=== PATIENT | female | born 1940 | race Caucasian/White ===

== ENCOUNTER 2019-03-05 07:49 | Inpatient (IN) ==
--- NOTE | 2019-02-21 15:40 | PAT Medication Instructions ---
Medication Instructions Date of Service February 21, 2019 Home Medications aspirin [Aspir-81] 81 mg PO QAM atorvastatin [Lipitor] 10 mg PO HS carbidopa-levodopa 2 tab PO HS celecoxib [Celebrex] 200 mg PO QAM cholecalciferol (vitamin D3) [Vitamin D3] 1,000 unit PO QAM docusate sodium [Stool Softener] 100 mg PO QAM glimepiride 2 mg PO QAM levothyroxine 100 mcg PO QAM lisinopril 10 mg PO QPM meclizine 25 mg PO BID PRN niacin 500 mg PO QAM pantoprazole 40 mg PO QPM ASK your surgeon for instructions celecoxib [Celebrex] 200 mg PO QAM ASK your prescriber and surgeon aspirin [Aspir-81] 81 mg PO QAM STOP taking 48 hours before surgery niacin 500 mg PO QAM DO NOT take the morning of surgery cholecalciferol (vitamin D3) [Vitamin D3] 1,000 unit PO QAM docusate sodium [Stool Softener] 100 mg PO QAM glimepiride 2 mg PO QAM Take morning of surgery With a small sip of water, OTHERWISE NOTHING TO EAT OR DRINK AFTER MIDNIGHT: levothyroxine 100 mcg PO QAM meclizine 25 mg PO BID PRN (if needed) Take evening before surgery atorvastatin [Lipitor] 10 mg PO HS carbidopa-levodopa 2 tab PO HS lisinopril 10 mg PO QPM meclizine 25 mg PO BID PRN (if needed) pantoprazole 40 mg PO QPM Other Notes If you have any questions please call us at [phone] or [phone] or [phone] or [phone]
--- NOTE | 2019-02-24 09:11 | Anesthesiology Consultation ---
Date of Service February 24, 2019 Assessment & Plan (1) Encounter for pre-operative examination: - Check BSG AM DOS Chart Review Chart Review: Pending: Refer to Additional Notes / Consult section (pending preop labs) and Patient seen in Pre Admission Testing Teaching & Discussion Pre-Anesthesia Teaching/Discussion Notes: Instructed NPO after midnight before surgery,except medications with 15 cc of water. Medication instructions provided according to the PAT guidelines. History Surgery Operation Date: 03/05/19 07:45 Proposed Procedures p L1-S1 Re-Decompression, T12-S1 Fusion with Possible Iliac Fixation with Spinal Cord Monitoring - Julien Baldwin DO Height/Weight Height: 5 ft 3 in Weight: 76.1 kg Allergies Allergy/AdvReac Type Severity Reaction Status Date / Time No Known Allergies Allergy Verified 02/20/19 08:23 Medications Home Medications Medication Instructions Recorded Confirmed Last Taken aspirin [Aspir-81] 81 mg PO QAM 02/20/19 02/20/19 Unknown atorvastatin [Lipitor] 10 mg PO HS 02/20/19 02/20/19 Unknown carbidopa-levodopa 2 tab PO HS 02/20/19 02/20/19 Unknown celecoxib [Celebrex] 200 mg PO QAM 02/20/19 02/20/19 Unknown cholecalciferol (vitamin D3) 1,000 unit PO QAM 02/20/19 02/20/19 Unknown [Vitamin D3] docusate sodium [Stool Softener] 100 mg PO QAM 02/20/19 02/20/19 Unknown glimepiride 2 mg PO QAM 02/20/19 02/20/19 Unknown levothyroxine 100 mcg PO QAM 02/20/19 02/20/19 Unknown lisinopril 10 mg PO QPM 02/20/19 02/20/19 Unknown meclizine 25 mg PO BID PRN 02/20/19 02/20/19 Unknown niacin 500 mg PO QAM 02/20/19 02/20/19 Unknown pantoprazole 40 mg PO QPM 02/20/19 02/20/19 Unknown Past Medical History Medical History Arthritis Chronic back pain B/L LE Diabetes mellitus, type 2 NIDDM GERD (gastroesophageal reflux disease) controlled Hyperlipidemia Hypertension Hypothyroidism Restless leg syndrome on carbidopa-levodopa Exercise / Class Metabolic Activity III < 4 Walking/Shop/Light housework Past Family History Family History Sister Family history of reaction to anesthesia SLOW TO WAKE UP Mother Family history of diabetes mellitus Past Surgical History Surgical History Fusion of spine lumbar (20+ years ago) Fusion of spine cervical (20+ years ago) H/O hemorrhoidectomy History of carpal tunnel release R/L Past Anesthesia History No Hx of Anesthesia Complications and Other Sister- slow to wake; no known hx reintubation History of PONV No Hx of PONV and Hx of Motion Sickness (occasional) Social History Smoking Status: Never smoker Do You Dip or Chew Tobacco: No Hx Alcohol Use: No Hx Substance Use: No Review of Systems Reflux controlled. Patient denies chest pain, shortness of breath, cough, wheezing, palpitations. Physical Exam Vital Signs VITALS BP 145/79 P 79 TEMP 98.1 SP02 95%RA RESP 18 PHYSICAL Full neck and c-spine range of motion. Full TMJ range of motion. TMD 3 finger breaths Mallampati Score 2 Dentition: intact Lungs: clear throughout to auscultation Cardiac: regular rate and rhythm with occasional extra beat, no murmurs noted Spine: normal Carotid arteries: negative bruit Extremities: no edema Short neck Testing Electrocardiogram Date: 12/27/18 SR at 68bpm. Consider LVH. Chest X-Ray Date: 12/27/18 Findings: + NAD
[2019-02-24 09:41] LABS: Basophils # (auto) 0.02 K/uL (0-0.2); Basophils % (auto) 0.3 %; Eosinophils # (auto) 0.31 K/uL (0-0.5); Eosinophils % (auto) 4.1 %; Hematocrit (blood only) 37.8 % (37-47); Hemoglobin 12.9 g/dL (12.0-16.0); Immature Granulocytes # (auto) 0.03 K/uL (0.00-0.02); Immature Granulocytes % (auto) 0.4 %; Lymphocytes # (auto) 1.52 K/uL (1.2-3.4); Lymphocytes % (auto) 20.1 %; Mean Corpuscular Hemoglobin 32.2 pg (25-34); Mean Corpuscular Hgb Conc 34.1 g/dL (32-36); Mean Corpuscular Volume 94.3 fL (80-100); Mean Platelet Volume 10.5 fL (7.4-10.4); Monocytes # (auto) 0.67 K/uL (0.11-0.59); Monocytes % (auto) 8.9 %; Neutrophils % (auto) 66.2 %; Platelet Count 209 K/uL (130-400); RDW Coefficient of Variation 13.7 % (11.5-14.5); Red Blood Count 4.01 M/uL (4.2-5.4); White Blood Count 7.55 K/uL (4.8-10.8)
[2019-02-24 09:58] LABS: INR 1.1 (0.9-1.1); Partial Thromboplastin Time 27.1 Seconds (21.0-31.0); Prothrombin Time 11.3 Seconds (9.0-12.0)
[2019-02-24 10:56] LABS: Estimated Average Glucose 166 mg/dl; Hemoglobin A1C 7.4 % (4.5-5.6)
[2019-02-24 11:11] LABS: BUN Creatinine Ratio 19.6 (10-20); Calcium 9.5 mg/dl (8.5-10.1); Est GFR (Non-African American) 43.1; Potassium 4.5 mmol/L (3.5-5.1)
[2019-02-24 12:39] LABS: Appearance Urine Clear (Clear); Bacteria Urine Automated Negative (Negative); Bilirubin Urine Negative (Negative); Blood Urine Negative (Negative); Color Urine Yellow; Epithelial Cell Urine Auto >30 /lpf (0-5); Glucose Urine UA 3+ (Negative); Ketones Urine Negative (Negative); Leukocyte Esterase Urine 2+ (Negative); Nitrite Urine Negative (Negative); Protein Urine Negative (Negative); Specific Gravity Urine 1.017 (1.000-1.030); Urobilinogen Urine Negative (Negative); pH Urine 5.5 (4.5-7.5)
[2019-02-24 13:18] LABS: RBC Urine Automated 0-4 /hpf (0-4)
[~2019-03-05 07:49] MED LIST: ACETAMINOPHEN 500 MG TAB PO SCH; CEFAZOLIN 1000MG 1,000 MG/7.5 ML SYR IV SCH; CeleBREX 200 MG CAP PO SCH; GABAPENTIN 300 MG CAP PO SCH; SODIUM CHLORIDE 0.9% 1000ML IV SCH; VOLUVEN IN NSS IV ONE
[2019-03-05] MEDS ORDERED: ePHEDrine sulfate 50 MG/ML AMP IV PRN (08:51)
[2019-03-05] MEDS ORDERED: ATROPINE SULFATE 0.1 MG/ML 10ML SYR IV PRN (08:51)
[2019-03-05] MEDS ORDERED: ONDANSETRON INJ 2 MG/ML 2 ML VIAL IV PRN (08:51)
[2019-03-05] MEDS ORDERED: HYDROmorphone INJ 1 MG/ML SYRINGE IV PRN ×2 (08:51→15:54)
[2019-03-05] MEDS ORDERED: MIDAZOLAM HCL 1 MG/ML 2ML VIAL ONE (09:42)
[2019-03-05] MEDS ORDERED: fentaNYL citrate 100 MCG/2 ML VIAL ONE ×7 (09:42→14:28)
--- NOTE | 2019-03-05 10:04 | History & Physical Bridge Note ---
Date of Service March 05, 2019 History & Physical Bridge Note I have examined the patient, reviewed the History & Physical and in the interval since the performance of the History & Physical I have noted the following changes of clinical significance: no changes noted
--- NOTE | 2019-03-05 10:05 | History & Physical Report ---
Date of Service March 05, 2019 Assessment & Plan (1) Spinal stenosis, lumbar region with neurogenic claudication: L1-S1 decompression fusion T12-S1 with possible iliac fixation Present on Admission?: Yes History of Present Illness Chief Complaint: Back and bilateral leg pain Primary Care Provider: Renetta Daily MD This is a 79-year-old female who presents with chronic persistent back and bilateral leg pain. After failing extensive course of nonoperative care is here for surgical intervention. Allergies Allergy/AdvReac Type Severity Reaction Status Date / Time No Known Allergies Allergy Verified 03/05/19 08:04 Home Medications Home Medications Medication Instructions Recorded Confirmed Type aspirin [Aspir-81] 81 mg PO QAM 02/20/19 03/05/19 History atorvastatin [Lipitor] 10 mg PO HS 02/20/19 03/05/19 History carbidopa-levodopa 2 tab PO HS 02/20/19 03/05/19 History celecoxib [Celebrex] 200 mg PO QAM 02/20/19 03/05/19 History cholecalciferol (vitamin D3) 1,000 unit PO QAM 02/20/19 03/05/19 History [Vitamin D3] docusate sodium [Stool Softener] 100 mg PO QAM 02/20/19 03/05/19 History glimepiride 2 mg PO QAM 02/20/19 03/05/19 History levothyroxine 100 mcg PO QAM 02/20/19 03/05/19 History lisinopril 10 mg PO QPM 02/20/19 03/05/19 History meclizine 25 mg PO BID PRN 02/20/19 03/05/19 History niacin 500 mg PO QAM 02/20/19 03/05/19 History pantoprazole 40 mg PO QPM 02/20/19 03/05/19 History Past Med/Surg History Medical History Arthritis Chronic back pain B/L LE Diabetes mellitus, type 2 NIDDM GERD (gastroesophageal reflux disease) controlled Hyperlipidemia Hypertension Hypothyroidism Restless leg syndrome on carbidopa-levodopa Surgical History Fusion of spine lumbar (20+ years ago) Fusion of spine cervical (20+ years ago) H/O hemorrhoidectomy History of carpal tunnel release R/L Family History Sister Family history of reaction to anesthesia SLOW TO WAKE UP Mother Family history of diabetes mellitus Social History Preferred Language: Romansh Communication Ability: Effective University Administrative Assistant Required: No Beliefs That Will Affect Care: None Current Living Situation: Spouse Other Information That Helps Us Care for You: No Feels Safe at Home: Yes Safety Concerns: Feels Safe At This Time Smoking Status: Never smoker Do You Dip or Chew Tobacco: No ; Second Hand Exposure: No ; Hx Alcohol Use: No Hx Substance Use: No Physical Exam Physical Exam: Patient is alert and oriented neurologically intact. Results & Data Vital Signs (Past 12 Hours) Vital Signs Temp Pulse Resp BP Pulse Ox 03/05/19 08:23 36.5 C 86 18 148/86 H 98
[2019-03-05] MEDS ORDERED: BACITRACIN INJ 50,000 UNIT VIAL ONE (10:16)
[2019-03-05] MEDS ORDERED: THROMBIN FOR SOLN 20000 UNIT KIT ONE (10:16)
[2019-03-05] MEDS ORDERED: BUPIVACAINE/EPINEPHRINE 0.5% MPF 1:200,000 30 ML VIAL ONE (10:20)
[2019-03-05] MEDS ORDERED: CEFAZOLIN 250 MG/ML 1 GM VIAL ONE (10:44)
[2019-03-05] MEDS ORDERED: SODIUM CHLORIDE 0.9% INJ 10 ML VIAL ONE (11:31)
[2019-03-05] MEDS ORDERED: HYDROmorphone INJ 2 MG/ML SYR/VIAL ONE ×3 (11:31→14:08)
[2019-03-05] MEDS ORDERED: PROPOFOL IV EMULSION 10 MG/ML 20 ML VIAL IV ONE (13:33)
[2019-03-05] MEDS ORDERED: GLYCOPYRROLATE 0.2 MG/ML VIAL ONE (13:33)
[2019-03-05] MEDS ORDERED: NEOSTIGMINE METHYLSULFATE 1 MG/ML 10ML VIAL ONE (13:33)
[2019-03-05] MEDS ORDERED: ONDANSETRON INJ 2 MG/ML 2 ML VIAL ONE ×2 (13:33→14:28)
[2019-03-05] MEDS ORDERED: LIDOCAINE HCL 2% 2 ML VIAL/AMP(20MG/ML) INFIL ONE (13:33)
[2019-03-05] MEDS ORDERED: DEXAMETHASONE SOD INJ 4 MG/ML VIAL ONE (13:33)
[2019-03-05] MEDS ORDERED: ALBUMIN HUMAN 5% 12.5 GM/250 ML VIAL IV ONE (13:44)
[2019-03-05] MEDS ORDERED: FLOSEAL HEMOSTATIC MATRIX 5ML TOP ONE (13:46)
--- NOTE | 2019-03-05 14:00 | Operative Report ---
Post Operative Report Pre & Post Diagnosis Operation Date: 03/05/19 09:55 Pre-Op Diagnosis: Spinal stenosis, lumbar region with neurogenic claudication Spondylolisthesis L4-5 L5-S1. Post-Op Diagnosis: Same I identified the patient and participated in the time-out.: Yes Procedure Operation Date: 03/05/19 09:55 Actual Procedures #1 revision decompression with medial facetectomies and foraminotomies at L3-4 L4-5 L5-S1. #2 posterior spinal fusion T12-L1 L1-L2 L2-L3 L3-L4 L4-L5 L5-S1. #3 bilateral SI joint fusion. #4 placement posterior segmental instrumentation with bilateral iliac bolts L1-S1. #5 interbody fusion L4-5 L5-S1. #6 placement of peek cage 12 x 22 mm at L4-5 and 9 x 22 mm L5-S1. #7 placement infuse collagen sponge, master graft in the posterior lateral gutters and ostial amp and interbody space. #8 placement of locally harvested morselized autograft in the posterior lateral gutters. Surgeon Julien Baldwin, [employer] Supervisor Jennie Espinal Estimated Blood Loss 425 Findings Consistent with Post-Op Diagnosis Specimens None Indications This is a 79-year-old female presents with above-mentioned diagnosis after failing extensive course of nonoperative care elected to go the above-mentioned procedure. Description of Procedure Patient was met with identified and informed consent obtained. Patient was then taken to the operative suite underwent intubation placed in the prone position the Lazaro table on top of the Robby frame. All bony prominences well-padded eyes inspected to ensure no external pressure placed upon the peer at this point the lumbar spine was prepped and draped in the normal sterile fashion. Sharp dissection with the assistance of Bovie cautery was performed down to and exposing the lamina and transverse processes of T12-L1 L2-L3-L4 L5 and sacroiliac bilaterally. This included exposure of the bilateral posterior SI joints. Then performed a revision complete laminectomy with medial facetectomies and foraminotomies at L3-4 L4-5 L5-S1 on the right. Pedicle screws were then placed in L1-L2 L3-L4-L5 S1 as well as bilateral iliac bolts with the assistance of fluoroscopy. By way of a transforaminal portion right complete discectomy of L5-S1 is performed endplates curetted to subcortical bleeding bone and a 9 x 22 mm peek cage filled with ostium bone graft tapped into position. Then proceeded L for [address] of a transforaminal approach on the right complete discectomy was performed endplates curetted to subcortical bleeding bone and a 12 x 22 mm peek cage filled with ostium bone graft tapped in position. The appropriately sized rods were then contoured and locked in position bilaterally. The transverse processes of T12 L1-L2 L3-L4-L5 the sacral ala were then burred to subcortical bleeding bone and infuse collagen sponge bone mass graft locally harvested morselized graft was placed. Also in addition to this burred out the bilateral SI joints and placed additional infuse and collagen sponge in the bilateral SI joints. 15 round GRACIELA drain was inserted. Incision was then closed with 1 Vicryl in the fascia 2-0 Vicryl subtenons seen for Monocryl for final skin closure. Steri-Strip sterile dressings placed. She will continue to PACU stable condition. Please note Jennie Espinal present at the entire procedure involved the patient positioning complex portions of the surgery and final skin closure. Lastly spinal cord monitoring was utilized that the procedure no changes noted. I attest to the content of the Intraoperative Record and any orders documented therein. Any exceptions are noted below.
--- NOTE | 2019-03-05 14:12 | Fluoroscopy Report ---
FL lumbar spine 2-3V CLINICAL HISTORY: L1-S1 DECOMPRESSION T12-S1 FUSION WITH ILIAC BOLTS COMPARISON STUDY: None. FLUOROSCOPY TIME: 49 seconds. FLUOROSCOPIC IMAGES: 4. FINDINGS: Posterior decompression is noted. The patient is status post L4-L5 and L5-S1 discectomies w ith interbody spacer placement. Bilateral iliac bolts are noted. Bilateral pedicle screws at the L1, L2, L3, L4, L5 and S1 levels are noted. Hardware is intact. There are interconnecting rods. IMPRESSION: Postoperative findings within the lumbosacral spine, as described above. Electronically signed by: Raudel Godoy M.D. 03/05/2019 2:11 PM
[2019-03-05] MEDS ORDERED: PHENYLEPHRINE 100MCG/ML 5ML SYR ONE (14:28)
[2019-03-05] MEDS ORDERED: PHENYLEPHRINE HCL 10 MG/ML VIAL ONE (14:28)
[2019-03-05] MEDS ORDERED: ESMOLOL HCL INJ 10 MG/ML 10ML VIAL IV ONE (14:28)
[2019-03-05] MEDS ORDERED: ePHEDrine sulfate 50 MG/ML SYR ONE (14:28)
[2019-03-05] MEDS: fentaNYL citrate 100 MCG/2 ML VIAL IV PRN ×5 (14:30→14:50)
--- NOTE | 2019-03-05 14:57 | Anesthesiology Progress Note ---
Date of Service March 05, 2019 Anesthesia Post Procedure Vital Signs Vital Signs: Temp Pulse Pulse Resp BP Pulse Ox 03/05/19 14:55 89 12 121/62 100 03/05/19 14:45 91 H 13 128/67 98 03/05/19 14:35 87 13 132/77 100 03/05/19 14:25 97.0 F L 93 H 15 139/61 100 03/05/19 08:23 97.7 F 86 18 148/86 H 98 Pain Intensity Bilateral Foot: Pain Intensity: 7 Back: Pain Intensity: 4 Transfer of Care Handoff Completed per policy Notes Mental Status: alert / awake / arousable and participated in evaluation Patient Amnestic to Procedure: Yes Nausea / Vomiting: adequately controlled Pain: adequately controlled Airway Patency, RR, SpO2: stable & adequate BP & HR: stable & adequate Hydration State: stable & adequate Anesthetic Complications: no major complications apparent and Pt Satisfied with anesthetic care
[2019-03-05] MEDS ORDERED: LORazepam 0.5 MG TAB PO PRN (15:54)
[2019-03-05] MEDS ORDERED: BISACODYL 10 MG SUPP PR PRN (15:54)
[2019-03-05] MEDS ORDERED: SOD PHOSPHATE/SOD BIPHOSPHATE ENEMA 132 ML BTL PR PRN (15:54)
[2019-03-05] MEDS ORDERED: METOCLOPRAMIDE HCL INJ 5 MG/ML 2 ML VIAL IV PRN (15:54)
[2019-03-05] MEDS ORDERED: MECLIZINE HCL 25 MG TAB PO PRN (15:54)
[2019-03-05] MEDS ORDERED: MAGNESIUM HYDROXIDE SUSP 30 ML UDC PO PRN (15:54)
[2019-03-05] MEDS ORDERED: DO NOT ADMINISTER PNEUMOCOCCAL VACCINE PRN (15:54)
[2019-03-05] MEDS ORDERED: NALOXONE HCL 0.4 MG/1 ML VIAL/CARP IV PRN (15:54)
[2019-03-05] MEDS ORDERED: HYDROmorphone INJ 0.5 MG/0.5 ML SYR IV PRN (15:54)
[2019-03-05] MEDS ORDERED: DO NOT ADMINISTER FLU VACCINE PRN (15:54)
[2019-03-05] MEDS ORDERED: LORazepam 0.5 MG/1 ML VIAL IV PRN (15:54)
[2019-03-05] MEDS ORDERED: PROMETHAZINE HCL 12.5 MG in SODIUM CHLORIDE 0.9% 50 ML IV PRN (15:54)
[2019-03-05] MEDS ORDERED: FAMOTIDINE 20 MG TAB PO PRN (15:54)
[2019-03-05] MEDS ORDERED: ACETAMINOPHEN 1,000 MG/100 ML VIAL IV PRN (15:54)
[2019-03-05] MEDS ORDERED: ONDANSETRON 4 MG OD TAB PO PRN (15:54)
[2019-03-05] MEDS ORDERED: ALUMINUM/MAGNESIUM SUSP 30 ML UDC PO PRN (15:54)
[2019-03-05] MEDS ORDERED: GLUCOSE 10 TABS/TUBE PO PRN (17:22)
[2019-03-05] MEDS ORDERED: GLUCAGON FOR INJ 1 MG VIAL SQ PRN (17:22)
[2019-03-05] MEDS ORDERED: DEXTROSE 50% 50 ML SYRINGE IV PRN (17:22)
[2019-03-05] MEDS ORDERED: GLUCOSE 40% GEL 15 GM TUBE PO PRN (17:22)
[2019-03-05] MEDS ORDERED: CARBOHYDRATES FOR HYPOGLYCEMIA PO PRN (17:22)
--- NOTE | 2019-03-05 17:24 | Hospitalist Consultation ---
Date of Consultation March 05, 2019 Assessment & Plan (1) Spinal stenosis, lumbar region with neurogenic claudication: - POD#0 status post revision decompression with medial facetectomies and foraminotomies at L3-S1, posterior spinal fusion T12-S1, and bilateral SI joint fusion today by Dr. Baldwin - activity and wound care orders as per ortho - pain control with bowel regimen - PT/OT - monitor H/H for acute blood loss anemia and transfuse blood products PRN - EBL 425 cc (2) Diabetes mellitus, type 2: -Hgb A1c 7.4 02/2019 -Hold oral agents and utilize NovoLog per protocol while hospitalized (3) Hypertension: -BP controlled, continue lisinopril (4) Hyperlipidemia: -Continue statin (5) Hypothyroidism: -Continue levothyroxine (6) Restless leg syndrome: -Takes carbidopa-levodopa at bedtime (7) GERD (gastroesophageal reflux disease): -Continue PPI (8) DVT prophylaxis: -Teds/SCDs as per spine orthopedics Thank you for this consultation. We will follow the patient with you during their hospital stay. You can reach a member of the [facility] Hospitalist Team 27/11 via pager @ [phone]. Beginning 03/06, Dr. Krishna will be following the patient Supervising Physician Co-Signing Physician Notes I have seen and examined the patient with nurse practitioner and agree with the assessment and plan as above and would like to comment that This is a 79 year old patient with pre-Op Diagnosis of Spinal stenosis, lumbar region with neurogenic claudication and Spondylolisthesis L4-5 L5-S1 and on 03/05/19, patient had the following spinal decompression and fusion surgery : "#1 revision decompression with medial facetectomies and foraminotomies at L3-4 L4-5 L5-S1. #2 posterior spinal fusion T12-L1 L1-L2 L2-L3 L3-L4 L4-L5 L5-S1. #3 bilateral SI joint fusion. #4 placement posterior segmental instrumentation with bilateral iliac bolts L1-S1. #5 interbody fusion L4-5 L5-S1. #6 placement of peek cage 12 x 22 mm at L4-5 and 9 x 22 mm L5-S1. #7 placement infuse collagen sponge, master graft in the posterior lateral gutters and ostial amp and interbody space. #8 placement of locally harvested morselized autograft in the posterior lateral gutters." On exam patient is generally comfortable, able to sit upright in the chair Neuro/Psych: normal affect. awake and alert Heart: regular rate Lungs: clear to auscultation bilaterally Abdomen: soft, nontender, positive bowel sounds Back: dressing and GRACIELA drain on lower back : has nichols Extremities: no edema -Continue management of Diabetes mellitus, type 2 with NovoLog per protocol while hospitalized and hypertension management with lisinopril. -agree with current post-op plans as documented by nurse practitioner as above -My colleague Dr. Krishna will follow the patient as hospitalist medicine consult starting on 03/06/19 History of Present Illness Reason for Consultation: Postop medical management Requesting Physician: Dr. Baldwin Attending Physician: Dr. Saez History of Present Illness 79-year-old female who is status post revision decompression with medial facetectomies and foraminotomies at L3-S1, posterior spinal fusion T12-S1, and bilateral SI joint fusion today by Dr. Baldwin. Postoperatively the patient is doing well. She reports her pain is well controlled. She has chronic tingling in her feet which is unchanged from baseline. No weakness to the bilateral lower extremities. She denies chest pain or shortness of breath. No lightheadedness or dizziness. Denies abdominal pain or nausea. Nichols catheter is in place draining clear yellow urine. Allergies Allergy/AdvReac Type Severity Reaction Status Date / Time No Known Allergies Allergy Verified 03/05/19 08:04 Home Medications Home Medications Medication Instructions Recorded Confirmed Type aspirin [Aspir-81] 81 mg PO QAM 02/20/19 03/05/19 History atorvastatin [Lipitor] 10 mg PO HS 02/20/19 03/05/19 History carbidopa-levodopa 2 tab PO HS 02/20/19 03/05/19 History celecoxib [Celebrex] 200 mg PO QAM 02/20/19 03/05/19 History cholecalciferol (vitamin D3) 1,000 unit PO QAM 02/20/19 03/05/19 History [Vitamin D3] docusate sodium [Stool Softener] 100 mg PO QAM 02/20/19 03/05/19 History glimepiride 2 mg PO QAM 02/20/19 03/05/19 History levothyroxine 100 mcg PO QAM 02/20/19 03/05/19 History lisinopril 10 mg PO QPM 02/20/19 03/05/19 History meclizine 25 mg PO BID PRN 02/20/19 03/05/19 History niacin 500 mg PO QAM 02/20/19 03/05/19 History pantoprazole 40 mg PO QPM 02/20/19 03/05/19 History Patient History Medical History Hypertension (Chronic) Hyperlipidemia (Chronic) Restless leg syndrome (Chronic) on carbidopa-levodopa Diabetes mellitus, type 2 (Chronic) NIDDM Hypothyroidism (Chronic) GERD (gastroesophageal reflux disease) (Chronic) controlled Arthritis (Chronic) Chronic back pain (Chronic) B/L LE Surgical History Fusion of spine (Chronic) lumbar (20+ years ago) Fusion of spine (Chronic) cervical (20+ years ago) H/O hemorrhoidectomy (Chronic) History of carpal tunnel release (Chronic) R/L Family History Sister Family history of reaction to anesthesia SLOW TO WAKE UP Mother Family history of diabetes mellitus Social History Preferred Language: Sierra Leonean Communication Ability: Effective Electrical Engineering 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 Required: No Beliefs That Will Affect Care: None Current Living Situation: Spouse Other Information That Helps Us Care for You: No Feels Safe at Home: Yes Safety Concerns: Feels Safe At This Time Smoking Status: Never smoker Do You Dip or Chew Tobacco: No ; Second Hand Exposure: No ; Hx Alcohol Use: No Hx Substance Use: No Review of Systems Review of Systems: ROS per HPI, all other systems reviewed and negative Physical Exam Constitutional: WD/WN, vitals as above Eyes: PERRL, conjunctivae normal, anicteric sclerae ENMT: external ear and nose normal, oropharynx normal Respiratory: normal respiratory effort, lungs clear to auscultation Cardiovascular: Rate/Rhythm: regular rate and regular rhythm Vessels: normal peripheral pulses Extremities: no edema Gastrointestinal (Abdomen): normal bowel sounds, soft, nontender, no hepato splenomegaly Musculoskeletal: no cyanosis or clubbing, extremities motor strength 5/5 S/P back surgery, drain in place draining bloody drainage, pedal pushes and pulls strong bilaterally Skin: no rashes, warm and dry Neurologic: PERRL, EOMI, accommodation nl, no face palsy, no dysarthria Psychiatric: A+Ox3, euthymic affect Genitourinary: Nichols catheter in place draining clear yellow urine Results & Data Vital Signs (Past 12 Hours) Vital Signs Temp Pulse Pulse Pulse Resp BP Pulse Ox 03/05/19 16:42 36.5 C 82 16 132/73 97 03/05/19 16:10 36.4 C L 83 14 113/69 96 03/05/19 15:40 36.5 C 91 H 16 125/73 100 03/05/19 15:30 89 14 129/67 93 03/05/19 15:15 91 H 14 120/63 96 03/05/19 15:05 36.4 C L 93 H 18 136/60 98 03/05/19 14:55 89 12 121/62 100 03/05/19 14:45 91 H 13 128/67 98 03/05/19 14:35 87 13 132/77 100 03/05/19 14:25 36.1 C L 93 H 15 139/61 100 03/05/19 08:23 36.5 C 86 18 148/86 H 98
[2019-03-05] MEDS: CEFAZOLIN 2000MG 2,000 MG/15 ML SYR IV SCH (18:09)
[2019-03-05] MEDS: INSULIN ASPART 100 UNITS/ML 3 ML PEN SC SCH ×2 (18:10→20:55)
[2019-03-05] MEDS: SODIUM CHLORIDE 0.9% 1000ML 1,000 ML IV SCH (20:49)
[2019-03-05] MEDS: OXYCODONE HCL IR 5 MG TAB (IMMEDIATE RELEASE) PO PRN (20:50)
[2019-03-05] MEDS: ATORVASTATIN 10 MG TAB PO SCH (20:50)
[2019-03-05] MEDS: LISINOPRIL 10 MG TAB PO SCH (20:50)
[2019-03-05] MEDS: CARBIDOPA/LEVODOPA 25/100MG TAB PO SCH (20:50)
[2019-03-05] MEDS: DOCUSATE SODIUM/SENNA 50/8.6MG TAB PO SCH (20:51)
[2019-03-05] MEDS: PANTOprazole 40 MG TAB PO SCH (20:52)
[2019-03-06] MEDS: OXYCODONE HCL IR 5 MG TAB (IMMEDIATE RELEASE) PO PRN ×4 (01:25→13:05)
[2019-03-06] MEDS: CEFAZOLIN 2000MG 2,000 MG/15 ML SYR IV SCH (01:26)
[2019-03-06] MEDS: ACETAMINOPHEN 500 MG TAB PO PRN ×2 (05:29→17:46)
[2019-03-06] MEDS: POLYETHYLENE (MIRALAX) 17 GM PACK PO SCH ×3 (05:29→18:31)
[2019-03-06 05:36] LABS: Basophils # (auto) 0.01 K/uL (0-0.2); Basophils % (auto) 0.1 %; Eosinophils # (auto) 0.01 K/uL (0-0.5); Eosinophils % (auto) 0.1 %; Hematocrit (blood only) 26.6 % (37-47); Hemoglobin 8.8 g/dL (12.0-16.0); Immature Granulocytes # (auto) 0.03 K/uL (0.00-0.02); Immature Granulocytes % (auto) 0.3 %; Lymphocytes % (auto) 9.3 %; Mean Corpuscular Hemoglobin 31.7 pg (25-34); Mean Corpuscular Hgb Conc 33.1 g/dL (32-36); Mean Corpuscular Volume 95.7 fL (80-100); Mean Platelet Volume 10.4 fL (7.4-10.4); Monocytes # (auto) 1.22 K/uL (0.11-0.59); Monocytes % (auto) 11.3 %; Neutrophils % (auto) 78.9 %; Platelet Count 160 K/uL (130-400); RDW Coefficient of Variation 14.2 % (11.5-14.5); RDW Standard Deviation 49.1 fL (36.4-46.3); Red Blood Count 2.78 M/uL (4.2-5.4); White Blood Count 10.77 K/uL (4.8-10.8)
[2019-03-06] MEDS: SODIUM CHLORIDE 0.9% 1000ML 1,000 ML IV SCH (05:36)
[2019-03-06 06:02] LABS: BUN Creatinine Ratio 17.5 (10-20); Calcium 8.2 mg/dl (8.5-10.1); Creatinine Clr Calc Pharmacy 43.8 ml/min; Est GFR (Non-African American) 51.8; Potassium 4.9 mmol/L (3.5-5.1)
[2019-03-06] MEDS ORDERED: GLIMEPIRIDE 2 MG TAB PO SCH (07:30)
[2019-03-06] MEDS: DOCUSATE SODIUM 100 MG CAP PO SCH (08:53)
[2019-03-06] MEDS: ASPIRIN 81 MG ECTAB PO SCH (08:54)
[2019-03-06] MEDS: CHOLECALCIFEROL 1,000 UNITS TAB PO SCH (08:54)
[2019-03-06] MEDS: NIACIN 500 MG TAB PO SCH (08:54)
[2019-03-06] MEDS: INSULIN ASPART 100 UNITS/ML 3 ML PEN SC SCH ×4 (08:56→21:23)
[2019-03-06] MEDS ORDERED: LEVOTHYROXINE SODIUM 100 MCG TABLET PO SCH (09:00)
--- NOTE | 2019-03-06 10:20 | Hospitalist Progress Note ---
Date of Service March 06, 2019 Assessment & Plan (1) Spinal stenosis, lumbar region with neurogenic claudication: - POD#1 s/p revision decompression with medial facetectomies and foraminotomies at L3-S1, posterior spinal fusion T12-S1, and bilateral SI joint fusion today by Dr. Baldwin - activity and wound care orders as per ortho - pain control with bowel regimen - PT/OT (2) Acute blood loss as cause of postoperative anemia: Acute blood loss anemia Hgb 8.8 today from pre-op 12.9 -Denies lightheadedness, visual changes, chest pain or SOB but has not yet ambulated much - instructed to proceed with caution. BP stable -EBL 425 ml, GRACIELA output 600ml to date -Monitor CBC and transfuse blood products PRN for hgb <8 (3) Diabetes mellitus, type 2: -Hgb A1c 7.4 02/2019 -Hold oral agents and utilize NovoLog per protocol while hospitalized (4) Hypertension: BP controlled, continue lisinopril (5) Hyperlipidemia: Continue statin (6) Hypothyroidism: Continue levothyroxine (7) Restless leg syndrome: Takes carbidopa-levodopa at bedtime (8) GERD (gastroesophageal reflux disease): Continue PPI (9) DVT prophylaxis: Teds/SCDs as per spine orthopedics Patient seen in collaboration with Dr. Porter. Please see addendum. Thank you for this consultation. We will follow the patient with you during their hospital stay. You can reach a [facility] via pager @ [phone]. Supervising Physician Co-Signing Physician Notes Patient is seen and examined at bedside. Doing well. States having some mild back pain after physical therapy today. Denies any chest pain, shortness of breath, dizziness, nausea, abdominal pain. Offers no other complaints. On exam patient is moderately built and nourished, no apparent distress, normocephalic atraumatic, lungs are clear to auscultation, S1-S2, no murmur, abdomen soft nont ernesto,Back--surgical site in dressing,+ drain, grossly nonfocal neurological system, no pedal edema. S/P revision decompression, fusion and medial facetectomies and foraminotomies POD #1. Acute blood loss anemia. Transfuse PRBCs as needed. Currently no blood transfusion needed. Continue wound care, pain control, DVT prophylaxis, activity as per primary team. Continue insulin therapy monitor blood glucose levels for diabetes. Continue bowel regimen to prevent constipation. I personally reviewed the record. Patient is interviewed and examined at bedside. Patient's care is coordinated with Candy Thorne PA-C. Please refer to the documentation above for details of patient's presentation and for discussion of other issues. Subjective Patient is seen and examined in 315-1. Sitting in bedside chair visiting with family. Back pain at surgical site is well controlled. Denies new numbness or paresthesias to lower extremities (has chronic paresthesias in bilateral feet). Denies any fever, chills, lightheadedness, chest pain, SOB, nausea, vomiting, abdominal pain, dysuria or diarrhea. Urinary catheter to be removed today. Not yet passing flatus. Review of Systems Review of Systems: At least ten systems reviewed and negative except as noted in the HPI. Physical Exam Physical Exam: General Appearance: WD/WN, vitals as above, NAD, sitting in bedside chair, pleasant, conversing easily Head: normocephalic, atraumatic Eyes: normal inspection, PERRL, conjunctivae normal, anicteric sclerae ENT: external ear and nose normal, oropharynx normal Neck: trachea midline, no thyromegaly normal visual inspection Respiratory: lungs clear to auscultation, no wheeze, rales, rhonchi. Normal insp/exp effort, no accessory muscle use Cardiovascular: regular rate, rhythm, no murmur, normal peripheral pulses. Vessels: no JVD or carotid bruit Chest: normal inspection of chest Abdomen/GI: normal bowel sounds, soft, nontender, no hepatosplenomegaly Extremities/Musculoskelatal: + Lumbosacral surgical dressing clean, dry, intact. +GRACIELA drain with serosanguineous output. No cyanosis or clubbing, extremities motor strength 5/5 Neurologic: PERRL, CN's II-XI intact bilaterally and moves all extremities Psychiatric: A+Ox3, euthymic affect Skin: no rashes, normal color, warm/dry Results & Data Vital Signs (Past 12 Hours) Vital Signs Temp Pulse Resp BP Pulse Ox 03/06/19 08:00 36.6 C 88 17 120/64 94 03/06/19 03:23 36.7 C 79 16 100/67 96 03/05/19 23:09 36.8 C 91 H 16 109/70 97 Laboratory Results Short CBC 03/06/19 Range/Units 04:59 WBC 10.77 (4.8-10.8) K/uL Hgb 8.8 L (12.0-16.0) g/dL Hct 26.6 L (37-47) % Plt Count 160 (130-400) K/uL BMP 03/06/19 04:59 Sodium 140 Potassium 4.9 Chloride 110 H Carbon Dioxide 23 BUN 18 Creatinine 1.04 Glucose 137 H Calcium 8.2 L
--- NOTE | 2019-03-06 10:21 | Orthopedic Progress Note ---
Date of Service March 06, 2019 Assessment & Plan (1) Spinal stenosis, lumbar region with neurogenic claudication: At this time we will continue physical therapy occupational therapy assess her progress hopefully discharge home this weekend. Present on Admission?: Yes Subjective Back pain is controlled leg pain markedly improved. Physical Exam Physical Exam: Patient is good strength testing. Appears comfortable. Results & Data Vital Signs (Past 12 Hours) Vital Signs Temp Pulse Resp BP Pulse Ox 03/06/19 08:00 36.6 C 88 17 120/64 94 03/06/19 03:23 36.7 C 79 16 100/67 96 03/05/19 23:09 36.8 C 91 H 16 109/70 97
[2019-03-06] MEDS ORDERED: Nursing to Pharmacy Communication ONE (14:02)
[2019-03-06] MEDS: CARBIDOPA/LEVODOPA 25/100MG TAB PO SCH (21:11)
[2019-03-06] MEDS: ATORVASTATIN 10 MG TAB PO SCH (21:12)
[2019-03-06] MEDS: PANTOprazole 40 MG TAB PO SCH (21:12)
[2019-03-06] MEDS: DOCUSATE SODIUM/SENNA 50/8.6MG TAB PO SCH (21:14)
[2019-03-06] MEDS: LISINOPRIL 10 MG TAB PO SCH (21:20)
[2019-03-07] MEDS: POLYETHYLENE (MIRALAX) 17 GM PACK PO SCH ×5 (00:07→23:23)
[2019-03-07] MEDS: ONDANSETRON INJ 2 MG/ML 2 ML VIAL IV PRN (02:06)
[2019-03-07 05:38] LABS: Hematocrit (blood only) 25.2 % (37-47); Hemoglobin 8.5 g/dL (12.0-16.0); Mean Corpuscular Hemoglobin 32.2 pg (25-34); Mean Corpuscular Hgb Conc 33.7 g/dL (32-36); Mean Corpuscular Volume 95.5 fL (80-100); Mean Platelet Volume 10.1 fL (7.4-10.4); Platelet Count 147 K/uL (130-400); RDW Coefficient of Variation 14.2 % (11.5-14.5); RDW Standard Deviation 49.5 fL (36.4-46.3); Red Blood Count 2.64 M/uL (4.2-5.4); White Blood Count 11.55 K/uL (4.8-10.8)
[2019-03-07] MEDS: LEVOTHYROXINE SODIUM 100 MCG TABLET PO SCH (05:50)
[2019-03-07 06:11] LABS: BUN Creatinine Ratio 17.8 (10-20); Calcium 8.6 mg/dl (8.5-10.1); Creatinine Clr Calc Pharmacy 37.6 ml/min; Est GFR (Non-African American) 43.1; Potassium 4.8 mmol/L (3.5-5.1)
[2019-03-07] MEDS: TRAMADOL HCL 50 MG TABLET PO PRN ×2 (06:34→15:50)
[2019-03-07] MEDS: NIACIN 500 MG TAB PO SCH (07:22)
[2019-03-07] MEDS: CHOLECALCIFEROL 1,000 UNITS TAB PO SCH (07:22)
[2019-03-07] MEDS: ASPIRIN 81 MG ECTAB PO SCH (07:22)
[2019-03-07] MEDS: DOCUSATE SODIUM 100 MG CAP PO SCH (07:23)
[2019-03-07] MEDS: INSULIN ASPART 100 UNITS/ML 3 ML PEN SC SCH ×4 (08:36→20:47)
--- NOTE | 2019-03-07 09:04 | Hospitalist Progress Note ---
Date of Service March 07, 2019 Assessment & Plan (1) Spinal stenosis, lumbar region with neurogenic claudication: - POD#2 s/p revision decompression with medial facetectomies and foraminotomies at L3-S1, posterior spinal fusion T12-S1, and bilateral SI joint fusion today by Dr. Baldwin - activity and wound care orders as per ortho - pain control with bowel regimen - PT/OT (2) Acute blood loss as cause of postoperative anemia: Acute blood loss anemia -Hgb 7.5 today (from 8.8 yesterday). Pre-op hgb 12.9 -Lightheadedness with sitting and standing. BP 101/65. Will give gentle fluids. Monitor closely -Monitor CBC and transfuse blood products PRN for hgb <8 (3) Diabetes mellitus, type 2: -Hgb A1c 7.4 02/2019 -Hold oral agents and utilize NovoLog per protocol while hospitalized (4) Hypertension: BP controlled, continue lisinopril -Hold for SBP <110 (5) Hyperlipidemia: Continue statin (6) Hypothyroidism: Continue levothyroxine (7) Restless leg syndrome: Takes carbidopa-levodopa at bedtime (8) GERD (gastroesophageal reflux disease): Continue PPI (9) DVT prophylaxis: Teds/SCDs as per spine orthopedics Patient seen in collaboration with Dr. Porter. Please see addendum. Thank you for this consultation. We will follow the patient with you during their hospital stay. You can reach a [facility] via pager @ [phone]. Supervising Physician Co-Signing Physician Notes Patient is seen and examined at bedside. Had physical therapy earlier today. States having mild lightheadedness this morning. Back pain is controlled. Noted mild leukocytosis on labs, expect to rise tomorrow due to dexamethasone d ose today. Also receiving 2 unit PRBCs as per Ortho. Denies any chest pain, shortness of breath, dizziness, nausea, abdominal pain. Offers no other complaints. On exam patient is moderately built and nourished, no apparent distress, normocephalic atraumatic, lungs are clear to auscultation, S1-S2, no murmur, abdomen soft nontender,Back--surgical site in dressing,+ drain, grossly nonfocal neurological system, no pedal edema. S/P revision decompression, fusion and medial facetectomies and foraminotomies POD #2. Acute blood loss anemia. S/P 2 units PRBCs. Continue wound care, pain control, DVT prophylaxis, activity as per primary team. Continue insulin therapy monitor blood glucose levels for diabetes. Continue bowel regimen to prevent constipation. I personally reviewed the record. Patient is interviewed and examined at bedside. Patient's care is coordinated with Candy Thorne PA-C. Please refer to the documentation above for details of patient's presentation and for discussion of other issues. Subjective Patient is seen and examined in 315-1. Just finished OT and is feeling lightheaded. BP 101/65 lying. Denies visual changes, chest pain, palpitations or SOB. Back pain at surgical site is well controlled. Denies new numbness or paresthesias to lower extremities (has chronic paresthesias in bilateral feet). Some nausea overnight but tolerated breakfast well. Denies any fever, chills, vomiting, abdominal pain, dysuria or diarrhea. Urinating without issue. Passing flatus, no BM yet. Review of Systems Review of Systems: At least ten systems reviewed and negative except as noted in the HPI. Physical Exam Physical Exam: General Appearance: WD/WN, vitals as above, NAD, resting in bed, conversing easily Head: normocephalic, atraumatic Eyes: normal inspection, PERRL, conjunctivae normal, anicteric sclerae ENT: external ear and nose normal, oropharynx normal Neck: trachea midline, no thyromegaly normal visual inspection Respiratory: lungs clear to auscultation, no wheeze, rales, rhonchi. Normal insp/exp effort, no accessory muscle use Cardiovascular: regular rate, rhythm, no murmur, normal peripheral pulses. Vessels: no JVD or carotid bruit Chest: normal inspection of chest Abdomen/GI: normal bowel sounds, soft, nontender, no hepatosplenomegaly Extremities/Musculoskelatal: + Lumbosacral surgical dressing clean, dry, intact. +GRACIELA drain with minimal output. No cyanosis or clubbing, extremities motor strength 5/5 Neurologic: PERRL, CN's II-XI intact bilaterally and moves all extremities Psychiatric: A+Ox3, euthymic affect Skin: no rashes, normal color, warm/dry Results & Data Vital Signs (Past 12 Hours) Vital Signs Temp Pulse Resp BP Pulse Ox 03/07/19 07:55 36.7 C 87 16 113/72 93 03/07/19 06:49 16 95 03/06/19 23:41 92 03/06/19 23:40 36.8 C 90 17 106/65 83 L 03/06/19 21:08 36.2 C L 92 H 15 100/62 93 Laboratory Results Short CBC 03/07/19 Range/Units 05:17 WBC 11.55 H (4.8-10.8) K/uL Hgb 8.5 L (12.0-16.0) g/dL Hct 25.2 L (37-47) % Plt Count 147 (130-400) K/uL BMP 03/07/19 05:17 Sodium 135 L Potassium 4.8 Chloride 104 Carbon Dioxide 25 BUN 22 H Creatinine 1.21 H Glucose 183 H Calcium 8.6
[2019-03-07] MEDS ORDERED: SODIUM CHLORIDE 0.9% 1000ML 250 ML IV ONE (09:51)
[2019-03-07] MEDS ORDERED: SODIUM CHLORIDE 0.9% 250 ML IV PRN (09:54)
[2019-03-07] MEDS ORDERED: DEXAMETHASONE SOD PHOSPHATE 8 MG in SYRINGE 0 ML IV STA (09:59)
[2019-03-07] MEDS ORDERED: SODIUM CHLORIDE 0.9% 1000ML 1,000 ML IV SCH (10:00)
--- NOTE | 2019-03-07 10:03 | Orthopedic Progress Note ---
Date of Service March 07, 2019 Assessment & Plan (1) Acute blood loss as cause of postoperative anemia: This time we will transfuse 2 units of blood today. Give her a bit of Decadron to help with her soreness. Anticipate further therapy throughout the weekend. Present on Admission?: Yes Subjective Back pain controlled leg symptoms improved. She is however still very short of breath today with sitting up and lightheaded. Physical Exam Physical Exam: Exam she is in bed lying supine is good strength testing. Results & Data Vital Signs (Past 12 Hours) Vital Signs Temp Pulse Resp BP Pulse Ox 03/07/19 07:55 36.7 C 87 16 113/72 93 03/07/19 06:49 16 95 03/06/19 23:41 92 03/06/19 23:40 36.8 C 90 17 106/65 83 L
[2019-03-07] MEDS ORDERED: SODIUM CHLORIDE 0.9% 500 ML IV ONE (16:00)
[2019-03-07] MEDS: ATORVASTATIN 10 MG TAB PO SCH (20:48)
[2019-03-07] MEDS: PANTOprazole 40 MG TAB PO SCH (20:48)
[2019-03-07] MEDS: DOCUSATE SODIUM/SENNA 50/8.6MG TAB PO SCH (20:49)
[2019-03-07] MEDS: CARBIDOPA/LEVODOPA 25/100MG TAB PO SCH (20:49)
[2019-03-07] MEDS: LISINOPRIL 10 MG TAB PO SCH (20:51)
[2019-03-08 05:40] LABS: Hematocrit (blood only) 31.7 % (37-47); Mean Corpuscular Hemoglobin 32.2 pg (25-34); Mean Corpuscular Hgb Conc 34.7 g/dL (32-36); Mean Corpuscular Volume 92.7 fL (80-100); Mean Platelet Volume 10.4 fL (7.4-10.4); Platelet Count 144 K/uL (130-400); RDW Coefficient of Variation 15.7 % (11.5-14.5); RDW Standard Deviation 53.3 fL (36.4-46.3); Red Blood Count 3.42 M/uL (4.2-5.4); White Blood Count 13.09 K/uL (4.8-10.8)
[2019-03-08] MEDS: POLYETHYLENE (MIRALAX) 17 GM PACK PO SCH ×4 (05:42→23:43)
[2019-03-08] MEDS: LEVOTHYROXINE SODIUM 100 MCG TABLET PO SCH (05:42)
[2019-03-08] MEDS: OXYCODONE HCL IR 5 MG TAB (IMMEDIATE RELEASE) PO PRN ×2 (05:42→13:53)
[2019-03-08 06:21] LABS: BUN Creatinine Ratio 17.3 (10-20); Calcium 8.6 mg/dl (8.5-10.1); Est GFR (African American) 55.5; Est GFR (Non-African American) 47.9; Potassium 4.7 mmol/L (3.5-5.1)
[2019-03-08] MEDS: ASPIRIN 81 MG ECTAB PO SCH (07:33)
[2019-03-08] MEDS: NIACIN 500 MG TAB PO SCH (07:33)
[2019-03-08] MEDS: CHOLECALCIFEROL 1,000 UNITS TAB PO SCH (07:33)
[2019-03-08] MEDS: INSULIN ASPART 100 UNITS/ML 3 ML PEN SC SCH ×4 (07:34→21:09)
[2019-03-08] MEDS: DOCUSATE SODIUM 100 MG CAP PO SCH (07:35)
--- NOTE | 2019-03-08 09:43 | Orthopedic Progress Note ---
Date of Service March 08, 2019 Assessment & Plan (1) Spinal stenosis, lumbar region with neurogenic claudication: This time we will continue physical therapy advance her bowel regimen to maintain the GRACIELA drain anticipate discharge home Sunday. Present on Admission?: Yes Subjective Back pain improving. Leg symptoms markedly improved. No bowel movement as of yet. Physical Exam Physical Exam: Patient is in the chair at the bedside. Is good strength testing. Appears comfortable. Results & Data Vital Signs (Past 12 Hours) Vital Signs Temp Pulse Pulse Resp BP Pulse Ox 03/08/19 07:51 36.9 C 75 18 129/82 98 03/08/19 06:32 36.5 C 72 16 123/78 95 03/07/19 23:40 36.5 C 72 16 121/76 93
--- NOTE | 2019-03-08 10:45 | Hospitalist Progress Note ---
Date of Service March 08, 2019 Assessment & Plan (1) Spinal stenosis, lumbar region with neurogenic claudication: - POD#3 s/p lumbar surgery by Dr. Baldwin - activity and wound care orders as per ortho - pain control with bowel regimen, no BM reported yet, pain controlled - PT/OT (2) Post-operative state: plan as above. (3) Acute blood loss as cause of postoperative anemia: Acute blood loss anemia, Lightheadedness with sitting and standing has resolved. H&H has responded appropriately to 2 units packed red blood cells given yesterday. (4) Diabetes mellitus, type 2: -Hgb A1c 7.4 02/2019 -Hold oral agents and utilize NovoLog per protocol while hospitalized -Glucose more at goal this morning (156), continue NovoLog with sliding scale and carb coverage. (5) Hypertension: BP controlled, continue lisinopril per home regimen (6) Hypothyroidism: Continue levothyroxine per home regimen (7) Restless leg syndrome: Cont carbidopa-levodopa at bedtime per home regimen (8) DVT prophylaxis: Teds/SCDs as per spine orthopedics Full Code Dispo-per Dr. Baldwin Thank you for this consultation. We will follow the patient with you during their hospital stay. You can reach a member of the [facility]ist Team 27/11 via pager @ [phone]. Yoselin Knutson DO [facility]ist Subjective 79-year-old female, postop day 3 status post L1-S1 1 re-decompression, L1-S1 fusion, with interbody at L4-L5, L5-S1, application of bone morphogenic protein and allograft, with iliac cessation and spinal cord monitoring. She reports her pain is controlled using intermittent oxycodone. She is status post 2 units of packed red blood cells given yesterday with appropriate H&H response on lab work this morning. She is feeling well without lightheadedness, she denies any chest pain, shortness of breath or other issues at this time. She is tolerating p.o. She does report some tingling in her feet which is much improved from her prior numbness and tingling issues preoperatively. GRACIELA drain is still in place. Dexamethasone given yesterday, patient is not sure but feels this or pain medication is improving her pain. Blood sugars being monitored and at goal. Review of Systems Review of Systems: All systems reviewed & are unremarkable except as noted in HPI & below Physical Exam Physical Exam: CONSTITUTIONAL: WNWD, vitals as above, generally well- appearing EYES: normal conjunctivae, no scleral icterus ENT: MMM RESPIRATORY: clear to auscultation bilaterally, no crackles, rales or wheezes, normal respiratory effort CARDIOVASCULAR: regular rate and rhythm, S1 and 2 heard without murmurs, gallops or rubs, no JVD, no peripheral edema MUSCULOSKELETAL: Moves all extremities equally, head is normocephalic and atraumatic SKIN: warm and dry, Posterior lower back wound is covered with dressing is clean dry and intact. + GRACIELA drain NEUROLOGIC: No facial palsy, no dysarthria. CN 2-12 grossly intact, sensation deficit on bottoms of feet bilaterally, normal cognition, normal speech PSYCHIATRIC: alert cooperative and oriented to person, place and time. Results & Data Vital Signs (Past 12 Hours) Vital Signs Temp Pulse Pulse Resp BP Pulse Ox 03/08/19 07:51 36.9 C 75 18 129/82 98 03/08/19 06:32 36.5 C 72 16 123/78 95 03/07/19 23:40 36.5 C 72 16 121/76 93 Laboratory Results Short CBC 03/08/19 Range/Units 05:19 WBC 13.09 H (4.8-10.8) K/uL Hgb 11.0 L (12.0-16.0) g/dL Hct 31.7 L (37-47) % Plt Count 144 (130-400) K/uL BMP 03/08/19 05:19 Sodium 138 Potassium 4.7 Chloride 105 Carbon Dioxide 25 BUN 19 H Creatinine 1.11 Glucose 162 H Calcium 8.6 Medications Administered Current Inpatient Medications Acetaminophen (Tylenol) 1,000 mg PO Q8H PRN PRN Reason: MILD Pain Rating 1,2,3 Stop: 04/04/19 15:53 Last Admin: 03/06/19 17:46 Dose: 1,000 mg Documented by: Al Hydrox/Mg Hydrox/Simethicone (Maalox) 30 ml PO Q6H PRN PRN Reason: Dyspepsia Stop: 04/04/19 15:53 Aspirin (Ecotrin Ectab) 81 mg PO QAM [facility] Stop: 04/05/19 08:59 Last Admin: 03/08/19 07:33 Dose: 81 mg Documented by: Atorvastatin Calcium (Lipitor) 10 mg PO HS [facility] Stop: 04/04/19 20:59 Last Admin: 03/07/19 20:48 Dose: 10 mg Documented by: Bisacodyl (Dulcolax) 10 mg DE DAILY PRN PRN Reason: Constipation Stop: 04/04/19 15:53 Carbidopa/Levodopa (Sinemet 25/100 Mg) 2 tab PO HS [facility] Stop: 04/04/19 20:59 Last Admin: 03/07/19 20:49 Dose: 2 tab Documented by: Dextrose (Dextrose 50%) 25 - 50 ml IV UD PRN; Protocol PRN Reason: Hypoglycemia Protocol Stop: 04/04/19 17:21 Diphenhydramine HCl (Benadryl Capsule) 25 mg PO Q6H PRN PRN Reason: Allergic Rhinitis/Insomnia Stop: 04/04/19 15:53 Docusate Sodium (Colace) 100 mg PO [facility] Stop: 04/05/19 08:59 Last Admin: 03/08/19 07:35 Dose: 100 mg Documented by: Famotidine (Pepcid) 20 mg PO Q12H PRN PRN Reason: Dyspepsia Stop: 04/04/19 15:53 Glucagon (Glucagen) 1 mg SQ UD PRN; Protocol PRN Reason: Hypoglycemia Protocol Stop: 04/04/19 17:21 Glucose (Glucose 40%) 15 - 30 gm PO UD PRN; Protocol PRN Reason: Hypoglycemia Protocol Stop: 04/04/19 17:21 Glucose (Dex4 Glucose) 4 - 8 tabs PO UD PRN; Protocol PRN Reason: Hypoglycemia Protocol Stop: 04/04/19 17:21 Hydromorphone HCl (Dilaudid) 0.5 mg IV Q3H PRN PRN Reason: moderate pain (scale 4-6) Stop: 03/19/19 15:53 Last Admin: 03/07/19 02:20 Dose: 0.5 mg Documented by: Hydromorphone HCl (Dilaudid) 1 mg IV Q3H PRN PRN Reason: severe pain (scale 7-10) Stop: 03/19/19 15:53 Last Admin: 03/05/19 16:11 Dose: 1 mg Documented by: Hydroxyzine HCl (Vistaril) 25 mg PO Q8H PRN PRN Reason: Anxiety Stop: 04/04/19 15:53 Lorazepam (Ativan) 0.5 mg in 1 mls @ 0.5 mls/min IV Q8H PRN PRN Reason: Sedation/Anxiety Stop: 04/04/19 15:53 Promethazine HCl 12.5 mg/ (Sodium Chloride) 50.5 mls @ 204 mls/hr IV Q6H PRN PRN Reason: Nausea &/or Vomiting Stop: 04/04/19 15:53 Sodium Chloride (Nss) 250 mls @ 15 mls/hr IV .[id number] PRN PRN Reason: For Transfusion Stop: 04/06/19 09:53 Influenza Virus Vaccine Quadrival (Flu Vaccine, Do Not Administer) 1 ea N/A PRN PRN PRN Reason: Notification Stop: 04/04/19 15:53 Insulin Aspart (Novolog Flexpen) 0 units SC ACHS [facility] Stop: 04/04/19 17:29 Last Admin: 03/08/19 07:34 Dose: 5 units Documented by: Levothyroxine Sodium (Synthroid) 100 mcg PO DAILYBB [facility] Stop: 04/05/19 08:59 Last Admin: 03/08/19 05:42 Dose: 100 mcg Documented by: Lisinopril (Zestril) 10 mg PO QPM [facility] Stop: 04/04/19 20:59 Last Admin: 03/07/19 20:51 Dose: 10 mg Documented by: Lorazepam (Ativan) 0.5 mg PO Q8H PRN PRN Reason: Sedation/Anxiety Stop: 04/04/19 15:53 Magnesium Hydroxide (Milk Of Magnesia) 30 ml PO DAILY PRN PRN Reason: Constipation Stop: 04/04/19 15:53 Meclizine HCl (Antivert) 25 mg PO BID PRN PRN Reason: Dizziness Stop: 04/04/19 15:53 Metoclopramide HCl (Reglan) 10 mg IV Q6H PRN PRN Reason: Nausea &/or Vomiting Stop: 04/04/19 15:53 Last Admin: 03/07/19 05:49 Dose: 10 mg Documented by: Miscellaneous (Carbohydrates For Hypoglycemia) 15 - 30 gm PO UD PRN PRN Reason: Hypoglycemia Protocol Stop: 04/04/19 17:21 Naloxone HCl (Narcan) 0.1 mg IV Q5M PRN; Protocol PRN Reason: Oversedation/Resp Depression Stop: 04/04/19 15:53 Niacin (Niacin) 500 mg PO QAM [facility] Stop: 04/05/19 08:59 Last Admin: 03/08/19 07:33 Dose: 500 mg Documented by: Ondansetron HCl (Zofran Odt) 4 mg PO Q6H PRN PRN Reason: Nausea Stop: 04/04/19 15:53 Last Admin: 03/06/19 20:08 Dose: 4 mg Documented by: Ondansetron HCl (Zofran) 4 mg IV Q6H PRN PRN Reason: Nausea &/or Vomiting Stop: 04/04/19 15:53 Last Admin: 03/07/19 02:06 Dose: 4 mg Documented by: Oxycodone HCl (Roxicodone Immediate Rel) 5 - 10 mg PO Q4H PRN PRN Reason: Moderate-Severe Pain Stop: 03/19/19 15:53 Last Admin: 03/08/19 05:42 Dose: 5 mg Documented by: Pantoprazole Sodium (Protonix) 40 mg PO QPM [facility] Stop: 04/04/19 20:59 Last Admin: 03/07/19 20:48 Dose: 40 mg Documented by: Pneumococcal Polyvalent Vaccine (Pneumococcal Vacc, Do Not Administer) 1 ea N/A PRN PRN PRN Reason: Notification Stop: 04/04/19 15:53 Polyethylene Glycol (Miralax Powder Packet) 17 gm PO Q6 [facility] Stop: 04/05/19 05:59 Last Admin: 03/08/19 05:42 Dose: 17 gm Documented by: Senna/Docusate Sodium (Senokot S) 2 tab PO HS [facility] Stop: 04/04/19 20:59 Last Admin: 03/07/19 20:49 Dose: 2 tab Documented by: Sodium Biphosphate/Sodium Phosphate (Fleet Enema) 132 ml DE ONE PRN PRN Reason: Constipation Stop: 04/04/19 15:53 Tramadol HCl (Ultram) 50 - 100 mg PO Q4H PRN PRN Reason: Moderate-Severe Pain Stop: 04/04/19 15:53 Last Admin: 03/07/19 15:50 Dose: 100 mg Documented by: Vitamin D (Vitamin D3) [facility] Stop: 04/05/19 08:59 Last Admin: 03/08/19 07:33 Dose: 1,000 units Documented by:
[2019-03-08] MEDS: TRAMADOL HCL 50 MG TABLET PO PRN ×2 (17:30→22:26)
[2019-03-08] MEDS: ATORVASTATIN 10 MG TAB PO SCH (21:03)
[2019-03-08] MEDS: PANTOprazole 40 MG TAB PO SCH (21:03)
[2019-03-08] MEDS: LISINOPRIL 10 MG TAB PO SCH (21:03)
[2019-03-08] MEDS: CARBIDOPA/LEVODOPA 25/100MG TAB PO SCH (21:03)
[2019-03-08] MEDS: DOCUSATE SODIUM/SENNA 50/8.6MG TAB PO SCH (21:09)
[2019-03-09 05:47] LABS: Hematocrit (blood only) 33.5 % (37-47); Hemoglobin 11.1 g/dL (12.0-16.0); Mean Corpuscular Hemoglobin 31.2 pg (25-34); Mean Corpuscular Hgb Conc 33.1 g/dL (32-36); Mean Corpuscular Volume 94.1 fL (80-100); Mean Platelet Volume 10.4 fL (7.4-10.4); Platelet Count 176 K/uL (130-400); RDW Coefficient of Variation 15.3 % (11.5-14.5); RDW Standard Deviation 52.8 fL (36.4-46.3); Red Blood Count 3.56 M/uL (4.2-5.4); White Blood Count 10.04 K/uL (4.8-10.8)
[2019-03-09] MEDS: POLYETHYLENE (MIRALAX) 17 GM PACK PO SCH (05:53)
[2019-03-09] MEDS: LEVOTHYROXINE SODIUM 100 MCG TABLET PO SCH (05:53)
[2019-03-09 06:06] LABS: BUN Creatinine Ratio 17.5 (10-20); Creatinine Clr Calc Pharmacy 44.7 ml/min; Est GFR (African American) 61.4; Potassium 4.4 mmol/L (3.5-5.1)
[2019-03-09] MEDS: NIACIN 500 MG TAB PO SCH (07:25)
[2019-03-09] MEDS: ASPIRIN 81 MG ECTAB PO SCH (07:25)
[2019-03-09] MEDS: CHOLECALCIFEROL 1,000 UNITS TAB PO SCH (07:25)
[2019-03-09] MEDS: DOCUSATE SODIUM 100 MG CAP PO SCH (07:26)
[2019-03-09] MEDS: INSULIN ASPART 100 UNITS/ML 3 ML PEN SC SCH ×4 (07:51→20:48)
[2019-03-09] MEDS: TRAMADOL HCL 50 MG TABLET PO PRN ×3 (07:54→20:01)
--- NOTE | 2019-03-09 08:59 | Orthopedic Progress Note ---
Date of Service March 09, 2019 Assessment & Plan (1) Spinal stenosis, lumbar region with neurogenic claudication: At this point patient is doing well. We will progress her with physical therapy. We will continue with GI DVT prophylaxis and hopefully get her moving tomorrow. Subjective Patient was seen bedside in room 315. She is doing well today. She has no headaches and minimal back pain. Her pain is well controlled. She does not have any pain rating down her legs. She has been up and walking. She denies any other numbness, tingling, paresthesias. Physical Exam Physical Exam: On exam she is alert and oriented. Her dressing is clean dry and intact. Her GRACIELA drains in place and is holding suction. Her calves are supple nontender her abdomen supple and nontender. Strength and sensation both intact. Results & Data Vital Signs (Past 12 Hours) Vital Signs Temp Pulse Pulse Resp BP Pulse Ox 03/09/19 07:50 36.7 C 83 18 138/83 93 03/09/19 06:18 36.4 C L 71 16 144/78 H 96 03/08/19 23:10 36.6 C 77 16 119/73 91
--- NOTE | 2019-03-09 17:23 | Hospitalist Progress Note ---
Date of Service March 09, 2019 Assessment & Plan (1) Spinal stenosis, lumbar region with neurogenic claudication: - POD#4 s/p lumbar surgery by Dr. Baldwin - activity and wound care orders as per ortho - pain control with bowel regimen, no BM reported yet, pain controlled - PT/OT (2) Post-operative state: plan as above. (3) Acute blood loss as cause of postoperative anemia: Acute blood loss anemia, Lightheadedness with sitting and standing has resolved. H&H has responded appropriately to 2 units packed red blood cells. H&H is stable. (4) Diabetes mellitus, type 2: -Hgb A1c 7.4 02/2019 -Hold oral agents and utilize NovoLog per protocol while hospitalized -Glucose at goal, continue NovoLog sliding scale with carb coverage. (5) Hypertension: BP controlled, continue lisinopril per home regimen (6) Hypothyroidism: Continue levothyroxine per home regimen (7) Restless leg syndrome: Cont carbidopa-levodopa at bedtime per home regimen (8) DVT prophylaxis: Teds/SCDs as per spine orthopedics Full Code Dispo-per Dr. Baldwin. Thank you for this consultation. We will follow the patient with you during their hospital stay. You can reach a member of the [facility] Hospitalist Team 27/11 via pager @ [phone]. Yoselin Knutson, [facility] Hospitalist Subjective Doing well, normal BM, pain is well controlled. Patient states she is going home tomorrow. Tolerating p.o. Review of Systems Review of Systems: All systems reviewed & are unremarkable except as noted in HPI & below Physical Exam Physical Exam: CONSTITUTIONAL: WNWD, vitals as above, generally well-a ppearing EYES: normal conjunctivae, no scleral icterus ENT: MMM RESPIRATORY: clear to auscultation bilaterally, no crackles, rales or wheezes, normal respiratory effort CARDIOVASCULAR: regular rate and rhythm, S1 and 2 heard without murmurs, gallops or rubs, no JVD, no peripheral edema MUSCULOSKELETAL: Moves all extremities equally, head is normocephalic and atraumatic SKIN: warm and dry, Posterior lower back wound is covered with dressing is clean dry and intact. + GRACIELA drain NEUROLOGIC: No facial palsy, no dysarthria. CN 2-12 grossly intact, sensation deficit on bottoms of feet bilaterally, normal cognition, normal speech PSYCHIATRIC: alert cooperative and oriented to person, place and time. Results & Data Vital Signs (Past 12 Hours) Vital Signs Temp Pulse Pulse Resp BP Pulse Ox 03/09/19 15:51 36.4 C L 71 16 130/73 93 03/09/19 07:50 36.7 C 83 18 138/83 93 03/09/19 06:18 36.4 C L 71 16 144/78 H 96 Laboratory Results Short CBC 03/09/19 Range/Units 04:54 WBC 10.04 (4.8-10.8) K/uL Hgb 11.1 L (12.0-16.0) g/dL Hct 33.5 L (37-47) % Plt Count 176 (130-400) K/uL BMP 03/09/19 04:54 Sodium 136 Potassium 4.4 Chloride 101 Carbon Dioxide 28 BUN 18 Creatinine 1.02 Glucose 132 H Calcium 9.0 Medications Administered Current Inpatient Medications Acetaminophen (Tylenol) 1,000 mg PO Q8H PRN PRN Reason: MILD Pain Rating 1,2,3 Stop: 04/04/19 15:53 Last Admin: 03/06/19 17:46 Dose: 1,000 mg Documented by: Al Hydrox/Mg Hydrox/Simethicone (Maalox) 30 ml PO Q6H PRN PRN Reason: Dyspepsia Stop: 04/04/19 15:53 Aspirin (Ecotrin Ectab) 81 mg PO [facility] Stop: 04/05/19 08:59 Last Admin: 03/09/19 07:25 Dose: 81 mg Documented by: Atorvastatin Calcium (Lipitor) 10 mg PO [facility] Stop: 04/04/19 20:59 Last Admin: 03/08/19 21:03 Dose: 10 mg Documented by: Bisacodyl (Dulcolax) 10 mg GA DAILY PRN PRN Reason: Constipation Stop: 04/04/19 15:53 Carbidopa/Levodopa (Sinemet 25/100 Mg) 2 tab PO [facility] Stop: 04/04/19 20:59 Last Admin: 03/08/19 21:03 Dose: 2 tab Documented by: Dextrose (Dextrose 50%) 25 - 50 ml IV UD PRN; Protocol PRN Reason: Hypoglycemia Protocol Stop: 04/04/19 17:21 Diphenhydramine HCl (Benadryl Capsule) 25 mg PO Q6H PRN PRN Reason: Allergic Rhinitis/Insomnia Stop: 04/04/19 15:53 Docusate Sodium (Colace) 100 mg PO QAM [facility] Stop: 04/05/19 08:59 Last Admin: 03/09/19 07:26 Dose: 100 mg Documented by: Famotidine (Pepcid) 20 mg PO Q12H PRN PRN Reason: Dyspepsia Stop: 04/04/19 15:53 Glucagon (Glucagen) 1 mg SQ UD PRN; Protocol PRN Reason: Hypoglycemia Protocol Stop: 04/04/19 17:21 Glucose (Glucose 40%) 15 - 30 gm PO UD PRN; Protocol PRN Reason: Hypoglycemia Protocol Stop: 04/04/19 17:21 Glucose (Dex4 Glucose) 4 - 8 tabs PO UD PRN; Protocol PRN Reason: Hypoglycemia Protocol Stop: 04/04/19 17:21 Hydromorphone HCl (Dilaudid) 0.5 mg IV Q3H PRN PRN Reason: moderate pain (scale 4-6) Stop: 03/19/19 15:53 Last Admin: 03/07/19 02:20 Dose: 0.5 mg Documented by: Hydromorphone HCl (Dilaudid) 1 mg IV Q3H PRN PRN Reason: severe pain (scale 7-10) Stop: 03/19/19 15:53 Last Admin: 03/05/19 16:11 Dose: 1 mg Documented by: Hydroxyzine HCl (Vistaril) 25 mg PO Q8H PRN PRN Reason: Anxiety Stop: 04/04/19 15:53 Lorazepam (Ativan) 0.5 mg in 1 mls @ 0.5 mls/min IV Q8H PRN PRN Reason: Sedation/Anxiety Stop: 04/04/19 15:53 Promethazine HCl 12.5 mg/ (Sodium Chloride) 50.5 mls @ 204 mls/hr IV Q6H PRN PRN Reason: Nausea &/or Vomiting Stop: 04/04/19 15:53 Sodium Chloride (Nss) 250 mls @ 15 mls/hr IV .[id number] PRN PRN Reason: For Transfusion Stop: 04/06/19 09:53 Influenza Virus Vaccine Quadrival (Flu Vaccine, Do Not Administer) 1 ea N/A PRN PRN PRN Reason: Notification Stop: 04/04/19 15:53 Insulin Aspart (Novolog Flexpen) 0 units SC ACHS [facility] Stop: 04/04/19 17:29 Last Admin: 03/09/19 12:51 Dose: 4 units Documented by: Levothyroxine Sodium (Synthroid) 100 mcg PO DAILYBB [facility] Stop: 04/05/19 08:59 Last Admin: 03/09/19 05:53 Dose: 100 mcg Documented by: Lisinopril (Zestril) 10 mg PO QPM [facility] Stop: 04/04/19 20:59 Last Admin: 03/08/19 21:03 Dose: 10 mg Documented by: Lorazepam (Ativan) 0.5 mg PO Q8H PRN PRN Reason: Sedation/Anxiety Stop: 04/04/19 15:53 Magnesium Hydroxide (Milk Of Magnesia) 30 ml PO DAILY PRN PRN Reason: Constipation Stop: 04/04/19 15:53 Last Admin: 03/08/19 18:22 Dose: 30 ml Documented by: Meclizine HCl (Antivert) 25 mg PO BID PRN PRN Reason: Dizziness Stop: 04/04/19 15:53 Metoclopramide HCl (Reglan) 10 mg IV Q6H PRN PRN Reason: Nausea &/or Vomiting Stop: 04/04/19 15:53 Last Admin: 03/07/19 05:49 Dose: 10 mg Documented by: Miscellaneous (Carbohydrates For Hypoglycemia) 15 - 30 gm PO UD PRN PRN Reason: Hypoglycemia Protocol Stop: 04/04/19 17:21 Naloxone HCl (Narcan) 0.1 mg IV Q5M PRN; Protocol PRN Reason: Oversedation/Resp Depression Stop: 04/04/19 15:53 Niacin (Niacin) 500 mg PO QAM [facility] Stop: 04/05/19 08:59 Last Admin: 03/09/19 07:25 Dose: 500 mg Documented by: Ondansetron HCl (Zofran Odt) 4 mg PO Q6H PRN PRN Reason: Nausea Stop: 04/04/19 15:53 Last Admin: 03/06/19 20:08 Dose: 4 mg Documented by: Ondansetron HCl (Zofran) 4 mg IV Q6H PRN PRN Reason: Nausea &/or Vomiting Stop: 04/04/19 15:53 Last Admin: 03/07/19 02:06 Dose: 4 mg Documented by: Oxycodone HCl (Roxicodone Immediate Rel) 5 - 10 mg PO Q4H PRN PRN Reason: Moderate-Severe Pain Stop: 03/19/19 15:53 Last Admin: 03/08/19 13:53 Dose: 10 mg Documented by: Pantoprazole Sodium (Protonix) 40 mg PO QPM [facility] Stop: 04/04/19 20:59 Last Admin: 03/08/19 21:03 Dose: 40 mg Documented by: Pneumococcal Polyvalent Vaccine (Pneumococcal Vacc, Do Not Administer) 1 ea N/A PRN PRN PRN Reason: Notification Stop: 04/04/19 15:53 Senna/Docusate Sodium (Senokot S) 2 tab PO HS [facility] Stop: 04/04/19 20:59 Last Admin: 03/08/19 21:09 Dose: 2 tab Documented by: Sodium Biphosphate/Sodium Phosphate (Fleet Enema) 132 ml GA ONE PRN PRN Reason: Constipation Stop: 04/04/19 15:53 Tramadol HCl (Ultram) 50 - 100 mg PO Q4H PRN PRN Reason: Moderate-Severe Pain Stop: 04/04/19 15:53 Last Admin: 03/09/19 15:39 Dose: 100 mg Documented by: Vitamin D (Vitamin D3) 1,000 units PO QAM [facility] Stop: 04/05/19 08:59 Last Admin: 03/09/19 07:25 Dose: 1,000 units Documented by:
[2019-03-09] MEDS: ATORVASTATIN 10 MG TAB PO SCH (20:01)
[2019-03-09] MEDS: PANTOprazole 40 MG TAB PO SCH (20:02)
[2019-03-09] MEDS: LISINOPRIL 10 MG TAB PO SCH (20:02)
[2019-03-09] MEDS: CARBIDOPA/LEVODOPA 25/100MG TAB PO SCH (20:02)
[2019-03-09] MEDS: DOCUSATE SODIUM/SENNA 50/8.6MG TAB PO SCH (20:02)
[2019-03-10] MEDS: TRAMADOL HCL 50 MG TABLET PO PRN ×2 (00:05→13:15)
[2019-03-10] MEDS: LEVOTHYROXINE SODIUM 100 MCG TABLET PO SCH (05:51)
[2019-03-10] MEDS: ONDANSETRON INJ 2 MG/ML 2 ML VIAL IV PRN (06:40)
[2019-03-10] MEDS: DOCUSATE SODIUM 100 MG CAP PO SCH (07:45)
[2019-03-10] MEDS: NIACIN 500 MG TAB PO SCH (08:15)
[2019-03-10] MEDS: ASPIRIN 81 MG ECTAB PO SCH (08:15)
[2019-03-10] MEDS: CHOLECALCIFEROL 1,000 UNITS TAB PO SCH (08:15)
[2019-03-10] MEDS: INSULIN ASPART 100 UNITS/ML 3 ML PEN SC SCH ×2 (08:17→13:20)
--- NOTE | 2019-03-10 10:03 | Hospitalist Progress Note ---
Date of Service March 10, 2019 Assessment & Plan (1) Spinal stenosis, lumbar region with neurogenic claudication: (2) Post-operative state: -POD#5 s/p lumbar surgery by Dr. Baldwin - activity and wound care orders as per ortho - pain control with bowel regimen, pain controlled. BM on 03/09/19 - PT/OT (3) Acute blood loss as cause of postoperative anemia: Acute blood loss anemia. Hgb: 8.5 on 03/07/19. Did have Lightheadedness with sitting and standing that resolved after receiving 2 units PRBCs. Hb.1 on 03/09/19 This morning lightheaded with ambulation. Will obtain H&H. Vitals stable (4) Diabetes mellitus, type 2: -Hgb A1c 7.4 02/2019 -Hold oral agents while hospitalized -Continue NovoLog sliding scale with carb coverage. (5) Hypertension: BP controlled -Continue lisinopril per home regimen (6) Hypothyroidism: -Continue levothyroxine per home regimen (7) Restless leg syndrome: -Cont carbidopa-levodopa at bedtime per home regimen (8) DVT prophylaxis: Teds/SCDs as per spine orthopedics Dispo-per Dr. Baldwin. Pt was seen and care coordinated with Dr Knutson. See addendum Supervising Physician Co-Signing Physician Notes I have seen and examined the patient and have discussed the case with the provider above. I agree with the assessment and plan as stated. I re-evaluated the patient after lunch. Nausea and lightheadedness had resolved. Patient feels comfortable going home. Followup in one week with primary care physician recommended. Repeat labwork was reviewed with expected results. Physical exam is unchanged and unremarkable. OK to send home from medical standpoint. DO Eamon Subjective Pt seen and examined. Sitting up in bedside chair. Reports this morning ambulated to bathroom and brushed teeth. States was feeling a little lightheaded. Sat back down and feeling some nausea. Reports took morning meds with orange juice and vomited once after. No further nausea or vomiting reported. Denies abdominal pain. Reports passing flatus. Denies fever/chills, diaphoresis, QUIGLEY, syncope, vision changes, neck pain, CP, SOB, paresthesias, extremity weakness, extremity edema, rashes, urinary symptoms. Review of Systems Review of Systems: All systems reviewed & are unremarkable except as noted in HPI & below Physical Exam Physical Exam: General: no distress, WDWN Head: normocephalic, atraumatic Eyes: conjunctiva non-injected, anicteric ENT: normal inspection external ears, nose, mucous membranes moist Neck: supple, trachea midline Lungs: clear, no respiratory distress, no wheezing/rhonchi/rales CV: RRR, no murmur, no pretibial edema Abd: normal BS, soft, non-tender Back: surgical dressing in place. GRACIELA drain in place with small amount serosanguineous fluid Ext: no cyanosis, no calf tenderness; distal pulses intact, sensation to light touch intact. Neuro: A&O x 3, no focal deficits noted, normal affect Skin: warm, dry Results & Data Vital Signs (Past 12 Hours) Vital Signs Temp Pulse Resp BP Pulse Ox 03/10/19 09:33 36.4 C L 73 17 140/76 98 03/10/19 06:41 36.4 C L 81 16 116/73 97 03/09/19 23:10 36.6 C 79 16 123/73 97
[2019-03-10 10:26] LABS: Hematocrit (blood only) 35.7 % (37-47); Mean Corpuscular Hemoglobin 31.4 pg (25-34); Mean Corpuscular Hgb Conc 33.6 g/dL (32-36); Mean Corpuscular Volume 93.5 fL (80-100); Mean Platelet Volume 10.2 fL (7.4-10.4); Platelet Count 210 K/uL (130-400); RDW Coefficient of Variation 14.7 % (11.5-14.5); RDW Standard Deviation 50.4 fL (36.4-46.3); Red Blood Count 3.82 M/uL (4.2-5.4)
[2019-03-10 10:57] LABS: Calcium 9.2 mg/dl (8.5-10.1); Creatinine Clr Calc Pharmacy 38.3 ml/min; Potassium 4.7 mmol/L (3.5-5.1)
--- NOTE | 2019-03-10 13:08 | Discharge Summary ---
Date of Service March 10, 2019 Admission HPI Per Admitting Provider This is a 79-year-old female who presents with chronic persistent back and bilateral leg pain. After failing extensive course of nonoperative care is here for surgical intervention. Principal Diagnosis Lumbar spinal stenosis with neurogenic claudication Discharge Data Allergies Allergy/AdvReac Type Severity Reaction Status Date / Time No Known Allergies Allergy Verified 03/05/19 08:04 Consultations 03/05/19 14:09 Consult Hospitalist Routine 03/05/19 15:54 Consult Case Management - Discharge Planning Routine Procedures Performed Operation Date: 03/05/19 09:55 Actual Procedures p L1-S1 Re-Decompression, L1-S1 Fusion, with Interbody at L4-L5, L5-S1, Application of Bone Morphogenetic Protein and Allograft, with Iliac Fixation and Spinal Cord Monitoring(Not Applicable) - Julien Baldwin DO Ordered Studies 03/05/19 09:55 FL fluoroscopy <1hr Routine FL lumbar spine 2-3V Routine Hospital Course (1) Spinal stenosis, lumbar region with neurogenic claudication: Patient is a 1 multilevel lumbar decompression fusion tolerated as well as taken to orthopedic for postoperative. Postop day 1 her leg symptoms are improved. She initiated physical therapy. She progressed throughout her hospital stay GRACIELA drain decreasing appropriately. Subsequently discharged home. Discharge orders instructions from the chart for further review. Total Time Total Time Spent Total Time Spent (In Minutes): 20 minutes Discharge Plan Discharge Items Patient Disposition: Home - Self-Care Reason For Visit: Other Intervertebral Disc Degeneration -LUMBAR REG Discharge Diagnosis: Lumbar spinal stenosis with neurogenic claudication Activity: As commented below Non-emergency contact: Primary Care Provider Call non-emergency contact if: you have any medication questions Follow-up/Referrals: Renetta Daily MD [Primary Care Provider] - Diet: Regular Addtl Attending Provider Instructions: ACTIVITY RECOMMENDATIONS: SELF CARE INSTRUCTIONS AFTER THORACIC/LUMBAR FUSIONS 1. You may walk to your tolerance. It is good exercise for your legs and back. Expect some back and intermittent leg aches and pains. 2. You may perform "counter-top" level activities (make a sandwich, raymundo with a project, etc.). 3. No bending or lifting of more than 10 pounds or back twisting of any nature (roll like a log when turning in bed). 4. You may ride in a car for 20-30 minutes at a time. No driving until after your first visit with your doctor. 5. Frequent changes of position and restricting sitting to 30 minutes at a time will help limit the amount of back spasms and stiffness you may experience. 6. You may discontinue the use of ambulatory aids (cane, crutches, etc.) once your strength and confidence allow. 7. You may glue jointer operator the shower and let water strike your incision when you arrive home at least once daily. Do not take a tub bath, sit in a hot tub or go into a swimming pool until after your first recheck in the office. SPECIAL CARE INSTRUCTIONS: VERY IMPORTANT TO READ AND REVIEW A. Your surgical incision has been closed with a cosmetic suture under the skin that will dissolve in about 6 weeks. In 14 days, you can use a pair of clean scissors and cut the suture that is left outside of the skin at the ends of your incision. 1. The small skin tapes can be removed 7 days after surgery if they have not fallen off by that point. 2. You may keep the wound open to air as much as possible to promote healing after post-op day number 5 unless told otherwise by your doctor. 3. If you think the wound looks like it is becoming infected (redness or worsening drainage) and/or you are experiencing fever, chill or worsening back pain and muscle spasms, contact the office so that we may evaluate you as soon as possible. B. Complications are uncommon, but please contact us if you have any signs or symptoms of: 1. wound infection (fever higher than 102.5 degrees F, redness, separation of wound, drainage, or increasing pain from the incision) 2. blood clots in legs (pain, swelling, redness and warmth in legs) 3. urinary tract infection (fever higher than 102.5 degrees F, burning upon urination or increased frequency of urination) 4. nerve problems (inability to walk on your toes or heels, numbness, loss of bowel or bladder control) 5. any other symptoms that concern you C. Please call the office at if you have any concerns or questions about your operation or recovery. D. No smoking! Smoking drastically decreases the chance of a solid fusion. E. Do not take any anti-inflammatory medications (Indocin, Advil, Motrin, Aspirin, Naprosyn, etc.) as these may inhibit the chance of a solid fusion. Tylenol is okay to take for pain. MANAGING PAIN AFTER SPINAL SURGERY 1. Narcotic medication is intended for short-term use and will be provided for surgical pain. Surgical pain usually lasts for a period of 4-6 weeks. Narcotic medication includes Percocet, Vicodin, Darvocet, Tylenol #3 or Lortab. 2. Longer-term pain is more appropriately treated with non-narcotic medication such as Tylenol ES. 3. Muscle spasm is not appropriately treated with narcotics. Muscle relaxers such as Soma, Flexeril or Skelaxin can be used along with Tylenol ES. 4. Remember that we all live with some "aches and pains". This is not unusual or uncommon after an injury or as we get older. a. Back pain is expected and may include muscle spasms for 4 to 6 weeks after surgery. The pain should gradually improve. If the pain worsens for no apparent reason, please contact the office. b. Intermittent leg pain may also be experienced and should not be concerned about unless it worsens for no apparent reason. If so, please contact the office. 5. We will provide appropriate medication within the normal guidelines of their prescribed use. We will also be very cautious and aware of potential abuse and extended duration of patients' medication needs. a. Pain medications are for your comfort and to assist with sleep and rest so that the tissue can heal. They are not provided in order to return to normal activity and should not be used through the day. To do so or worsening pain at night can result from ongoing tissue damage and development of tolerance to the prescribed medicine. 6. Please allow 2-3 days to process refills. Prescriptions will not be mailed but must be picked up at the office. FOLLOW UP VISIT: Keep your scheduled follow-up appointment. Any questions, please call the office at . Pending Studies at Discharge: No Stand-Alone Forms: My [employer], Smoking Cessation Medications and DC Order Prescriptions: New oxycodone 5 mg tablet 5 mg PO Q6H PRN (Reason: pain, severe) Qty: 30 RF: 0 Continued celecoxib [Celebrex] 200 mg Capsule 200 mg PO QAM RF: 0 atorvastatin [Lipitor] 10 mg Tablet 10 mg PO HS RF: 0 aspirin [Aspir-81] 81 mg Tablet,Delayed Release (Dr/Ec) 81 mg PO QAM RF: 0 glimepiride 2 mg Tablet 2 mg PO QAM RF: 0 levothyroxine 100 mcg Tablet 100 mcg PO QAM RF: 0 pantoprazole 40 mg Tablet,Delayed Release (Dr/Ec) 40 mg PO QPM RF: 0 lisinopril 10 mg Tablet 10 mg PO QPM RF: 0 carbidopa-levodopa 25-100 mg Tablet 2 tab PO HS RF: 0 niacin 500 mg Tablet 500 mg PO QAM RF: 0 docusate sodium [Stool Softener] 100 mg Capsule 100 mg PO QAM RF: 0 cholecalciferol (vitamin D3) [Vitamin D3] 1,000 unit Tablet,Chewable 1,000 unit PO QAM RF: 0 meclizine 25 mg Tablet 25 mg PO BID PRN (Reason: Dizziness) RF: 0 Discharge Orders: Discharge Order (Routine); Ordered 03/10/19 Ordered By: Julien Baldwin Admission Data Admit Date/Time: 03/05/19 14:03 Attending Provider: Julien Baldwin Admit Provider: Julien Baldwin Primary Care Provider: Renetta Daily Other Providers: Yoselin Knutson
== END 2019-03-10 15:14 | disposition home or self-care (01) | DRG 454 ==
LOC: ASU 07:49 → 3E 14:03